=== PATIENT | female | born 1955 | race Caucasian/White ===

== ENCOUNTER 2023-08-15 08:45 | Outpatient (AMB) | payer MEDICARE, SELFPAY ==
[2023-08-15 09:42] VITALS: BP 130/80; PULSE 99; TEMP 37.2; O2SAT 97; BMI 38.1
--- NOTE | 2023-08-15 09:42 | AM.OFFWIN_ITS ---
Intake Vital Signs 08/15/23 09:42 Height 5 ft 4 in Weight 222 lb BMI 38.1 BP 130/80 Blood Pressure Location Rt brachial Position Sitting Pulse 99 Pulse Source Pulse Oximeter Temp 98.9 F Pulse Oximetry (%) 97 Oxygen Delivery Method Room Air Intake Visit Reasons: BULLDOZER OPERATOR/sore throat([phone]) Intake Note: Pt is here today for sore throat and bad cough, started 2 wks ago also came in contact with positive RSV Patient Tobacco Use Status: Current everyday Tobacco user Allergies No Known Allergies Allergy (Verified 08/15/23 09:43) Do you need a note to return to daycare/school/sports/work: No HPI HPI Comments History of Present Illness Details She presents to office with ST She said 2 weeks ago runny nose, body aches and cold symptoms Her grand-daughter was + rsv Pt was feeling better and taking Clorcidine which helped + thick mucus and drip in sinuses + ear pain yesterday in both sides ST is severe and worse with cough PFSH Social History Patient Tobacco Use Status: Current everyday Tobacco user Review of Systems Const Reports body aches, Denies chills, Reports fatigue and Denies fever(s) Eyes Denies blurry vision ENT Reports otalgia, Reports nasal congestion and Reports sore throat Card Denies chest pain and Denies dyspnea Resp Reports cough and Denies dyspnea Endo Reports fatigue Physical Exam Vital Signs: Last Vital Signs Temp 98.9 F 08/15/23 09:42 Pulse 99 08/15/23 09:42 BP 130/80 08/15/23 09:42 Pulse Ox 97 08/15/23 09:42 Oxygen Delivery Method Room Air 08/15/23 09:42 BMI result Body Mass Index 38.1 General: Non-toxic, NAD. Speaking full sentences. Skin: Warm dry throughout Eye: EOMI HENT: Airway patent. Uvula midline. No pharyngeal erythema or edema. 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 + rhinorrhea. No significant sinus tenderness to palpation Bilateral canals clear. L TM slight erythema without bulging or perforation. R TM non-erythematous, non-bulging. No TM perforation or hemotympanum noted. Respiratory: CTA bilaterally. No wheezes, rales or rhonchi Cardiac: RRR. No murmur MSK: Full ROM extremities. Neurology: A/O. No aphasia or facial droop. Gait without abnormality Psych: Good mood and affect Results AMB Rapid Strep AMB Rapid Strep Negative Last Edit by Rigoberto Busch CMA on 08/15/23 10 :18 Results Reviewed Results Reviewed: Laboratory Last Values Strep Scn Rapid Clinic Negative 08/15/23 10:18 Assessment & Plan Assessment & Plan (1) Upper respiratory infection: Code(s): J06.9 - Acute upper respiratory infection, unspecified Qualifiers: URI type: unspecified viral URI Qualified Code(s): J06.9 - Acute upper respiratory infection, unspecified Plan: Patient seen and evaluated. Lungs CTA strep negative RSV/flu/covid obtained If panel neg and symptoms worse; may required Augmentin for sinuses/slight L ear erythema; discussed may eventually turn to bacterial infection Patient gave verbal understanding and had no additional questions or concerns at time of discharge All questions answered Orders: Orders AMB Rapid Strep Screen Today Z13.9 - Encounter for screening, unspecified SARS-CoV2/FLU/RSV Today R09.89 - Other specified symptoms and signs involving the circulatory and respiratory systems Coding Level of Care Code New Pt Level 3 (72075) Diagnoses Viral upper respiratory tract infection J06.9 URI type: unspecified viral URI
== END 2023-08-15 10:13 | disposition home or self-care (01) ==
PROVIDERS: PCP Internal Medicine; Visit Provider Physician Assistant
DX: J02.9 Acute pharyngitis, unspecified (principal)
CPT/HCPCS: 87880; 99203

== ENCOUNTER 2023-08-15 13:33 | Outpatient (REF) | payer MEDICARE, SELFPAY ==
[2023-08-15 14:15] LABS: Influenza A PCR NEGATIVE (Negative); Influenza B PCR NEGATIVE (Negative); Resp Syncy Virus RNA Qual PCR NEGATIVE (Negative); SARS COV2 PCR INHOUSE NEGATIVE (Negative)
== END 2023-08-15 13:34 | disposition home or self-care (01) ==
LOC: HO.HMGCLNP 13:33
PROVIDERS: Visit Provider Physician Assistant
DX: R09.89 Other specified symptoms and signs involving the circulatory and respiratory systems (principal); Z20.822 Contact with and (suspected) exposure to COVID-19
CPT/HCPCS: 0241U

== ENCOUNTER 2024-09-04 13:14 | Outpatient (AMB) | payer MEDICARE, SELFPAY ==
[2024-09-04 13:32] VITALS: BP 122/80; PULSE 81; O2SAT 99
--- NOTE | 2024-09-04 13:32 | MHC.OFFWIV ---
Intake Vital Signs 09/04/24 13:32 Weight 197 lb BP 122/80 Blood Pressure Location Lt brachial Position Sitting Pulse 81 Pulse Source Pulse Oximeter Pulse Oximetry (%) 99 Oxygen Delivery Method Room Air Intake Visit Reasons: EP rash on chin, eye & neck Intake Note: Patient here for rash on neck that she noticed a few days ago. Patient Tobacco Use Status: Current everyday Tobacco user Allergies No Known Allergies Allergy (Verified 09/04/24 13:36) Do you need a note to return to daycare/school/sports/work: No HPI EP rash on chin, eye & neck HPI Details This is a 69-year-old female patient who presents to the walk-in clinic today with a 4 day history of a rash on her neck and upper chest. She states it is itchy. She denies any known exposure to irritants or new products. Denies any shortness of breath. [facility] Social History Patient Tobacco Use Status: Current everyday Tobacco user Review of Systems Const All systems reviewed & are unremarkable except as noted in HPI and below Physical Exam Vital Signs: Last Vital Signs Pulse 81 09/04/24 13:32 BP 122/80 09/04/24 13:32 Pulse Ox 99 09/04/24 13:32 Oxygen Delivery Method Room Air 09/04/24 13:32 Const General: cooperative and healthy appearing Limitations: no limitations HEENT Head: Yes normal to inspection Ears: hearing grossly normal bilaterally General nose exam: Normal external nose present Face and sinus: Yes normal facial exam Resp Effort & Inspection: normal respiratory effort Auscultation: clear to auscultation bilaterally Skin Other: Rash consistent with contact derm over neck and upper chest. No open areas. Extrem General: Yes capillary refill normal and Yes no clubbing, cyanosis or edema Psych Appearance: grossly normal Mental Status: mental status grossly normal Speech and movement: Normal speech and movement present Assessment & Plan Assessment & Plan (1) Contact dermatitis: Code(s): L25.9 - Unspecified contact dermatitis, unspecified cause Qualifiers: Contact dermatitis type: unspecified Contact dermatitis trigger: unspecified trigger Qualified Code(s): L25.9 - Unspecified contact dermatitis, unspecified cause Plan: Will start on a prednisone taper. Patient states she has done well on this in the past for other issues. We reviewed indications, use, possible side effects of medication. If she does not improve with treatment, or if rash worsens or spreads, or she develops any shortness of breath, she should return to the clinic or emergency department for evaluation. She verbalizes understanding and agrees to plan. Medications: New prednisone Take 4 tabs for two days, then take 3 tabs for two days, then take 2 tabs for two days, then take 1 tab for 2 days. 10 mg PO DAILY 20 tabs 0RF L25.9 - Unspecified contact dermatitis, unspecified cause Coding Level of Care Code Est Pt Level 4 (93297) Diagnoses Contact dermatitis, unspecified contact dermatitis type, unspecified trigger L25.9 Contact dermatitis type: unspecified Contact dermatitis trigger: unspecified trigger
== END 2024-09-04 14:08 | disposition home or self-care (01) ==
PROVIDERS: PCP Internal Medicine; Visit Provider Nurse Practitioner Family
DX: L25.9 Unspecified contact dermatitis, unspecified cause (principal)

== ENCOUNTER → 2024-09-04 13:14 | Outpatient (BNVA) | payer MEDICARE, SELFPAY | PROVIDERS: PCP Internal Medicine; Visit Provider Nurse Practitioner Family | DX: L25.9 Unspecified contact dermatitis, unspecified cause (principal) | CPT/HCPCS: 99212 ==

== ENCOUNTER 2024-11-09 10:56 | Outpatient (AMB) | payer MEDICARE, SELFPAY ==
--- NOTE | 2024-11-09 11:55 | AM.OFFWIN_ITS ---
Intake Vital Signs 11/09/24 11:59 Weight 207 lb BP 120/80 Blood Pressure Location Lt brachial Position Sitting Pulse 85 Pulse Source Pulse Oximeter Pulse Oximetry (%) 98 Oxygen Delivery Method Room Air Intake Visit Reasons: EP Rash Intake Note: Patient here for rash on arms that started 3 days prior to end of her cruise. Patient Tobacco Use Status: Current everyday Tobacco user Allergies No Known Allergies Allergy (Verified 11/09/24 12:00) Do you need a note to return to daycare/school/sports/work: No HPI HPI Comments History of Present Illness Details History of Present Illness - The patient is a 69-year-old female pr esenting with a rash on both arms for the last 4 days, she was on a cruise when it started. - The rash began approximately mid-trip and coincided with the use of a sample lotion and a strong hold hairspray after extended sun exposure. - The rash is characterized as super itc hy, and hydrocortisone cream partially alleviated itching but not the rash itself. - There is a note of skin texture altera tion described as leathery. Physical Exam General: Cooperative, healthy appearing, comfortable, no acute distress and well developed Orientation: Patient oriented x3 Limitations: No limitations Head: Normal to inspection Ears: Hearing grossly normal bilaterally Nose: Normal External nose present Face and sinus: Normal facial exam Eyes: Appearance normal, both eyes and all related structures Neck: Normal visual inspection and Yes full ROM Respiratory: Normal respiratory effort and able to speak in complete sentences. Skin: bialteral arms with pinpoint raised erythematous lesions, confluent on both arms stopping abruptly at her T-shirt line. Neuro: Patient oriented x3 Extremities: Normal to inspection [facility] Social History Patient Tobacco Use Status: Current everyday Tobacco user Review of Systems Const All systems reviewed & are unremarkable except as noted in HPI and below Physical Exam Vital Signs: Last Vital Signs Pulse 85 11/09/24 11:59 BP 120/80 11/09/24 11:59 Pulse Ox 98 11/09/24 11:59 Oxygen Delivery Method Room Air 11/09/24 11:59 Assessment & Plan Assessment & Plan (1) Allergic dermatitis: Code(s): L23.9 - Allergic contact dermatitis, unspecified cause Plan: Management of the patient's suspected allergic contact dermatitis includes prescribing triamcinolone cream for its moderate potency to reduce inflammation and applying it twice daily to the affected arms. Additionally, hydroxyzine will address nocturnal itching with its sedative properties, promoting better sleep. Prescriptions will be directed to the local pharmacy. The patient's care plan focuses on alleviating acute symptoms, avoiding potential allergens, and encouraging follow-up if symptoms do not resolve with current interventions. Patient was informed and verbally consented to the use of an ambient scribe for clinic note documentation during this visit. Medications: New triamcinolone acetonide 0.1% 1 appl topical BID PRN 80 grams 0RF itching hydroxyzine HCl 25 mg PO BEDTIME 14 tabs 0RF Coding Level of Care Code New Pt Level 3 (59647) Diagnoses Allergic dermatitis L23.9
[2024-11-09 11:59] VITALS: BP 120/80; PULSE 85; O2SAT 98
== END 2024-11-09 12:37 | disposition home or self-care (01) ==
PROVIDERS: PCP Internal Medicine; Visit Provider Physician Assistant
DX: L23.9 Allergic contact dermatitis, unspecified cause (principal)

== ENCOUNTER → 2024-11-09 10:56 | Outpatient (BNVA) | payer MEDICARE, SELFPAY | PROVIDERS: PCP Internal Medicine; Visit Provider Physician Assistant | DX: L23.9 Allergic contact dermatitis, unspecified cause (principal) | CPT/HCPCS: 99202 ==

== ENCOUNTER 2025-04-14 09:57 | Outpatient (AMB) | payer MEDICARE, SELFPAY ==
--- OUTSIDE RECORDS SUMMARY | 2025-04-14 10:41 | XMS_ITS | Clinical Summary ---
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, without mention of thyrotoxic crisis or storm DX:Thyrotoxicosis without m ention of goiter or other cause, without mention of thyrotoxic crisis or storm Backache, unspecified 09/19/2006 DX:Backach e, unspecified; COMMENT: surgery 1985 Family History Medical History Relation Name Comments Prostate cancer Father Colon cancer Mother Other: hypothyroidism Other 1 strong ly positive family history Relation Name Status Comments Father Mother Other 1 Other 2 Social History Tobacco Use Types Packs/Day Years Used Date Smoking Tobacco: Every Day Cigarettes Alcohol Use Standard Drinks/Week Comments Yes 0 (1 standard drink = 0.6 oz pur e alcohol) Comments Unknown Sex and Gender Information Value Date Recorded Sex Assigned at Not on file Legal Sex Female 4:20 AM EST Gender Identity Not on file Sexual Orientation Not on file Obstetrics History Plan of Treatment Health Maintenance Due Date Last Done Comments Pneumococcal Vaccine: 50+ Years (1 of 2 - PCV) 1976 Zoster Vaccines (1 of 2) 2007 DTaP,Tdap,and Td Vaccines (2 - Td or Tdap) 08/20/2018 08/20/2008 Colorectal Cancer Screening: Colonoscopy 07/22/2022 Falls Risk Assessment 07/22/2022 Hepatitis C Screening 07/22/2022 Social Influencers of Health Screening 07/22/2022 COVID-19 Vaccine ( season) 2024 09/29/2020, 09/01/2020 Depression Screening 08/19/2024 Influenza Vaccine (#1) 2025 8, 06/04/2007, 07/28/2006, Additional history exists Breast Cancer Screening 05/26/2026 05/26/20 24, 10/24/2022, 12/11/2020, Additional history exists RSV Immunization Adult Patients (1 - 1-dose 75+ series) 2032 Osteoporosis Screening (Bone Density Screening) 06/02/2034 06/02/2024 HIB Vaccines Aged Out No longer eligi ble based on patient's age to complete this topic HPV Vaccines Aged Out No longer eligi ble based on patient's age to complete this topic Hepatitis A Vaccines Aged Out No long er eligible based on patient's age to complete this topic Hepatitis B Vaccines Aged Out No long er eligible based on patient's age to complete this topic IPV Vaccines Aged Out No longer eligi ble based on patient's age to complete this topic MMR Vaccines Aged Out No longer eligi ble based on patient's age to complete this topic Meningococcal ACWY Vaccine Aged Out N o longer eligible based on patient's age to complete this topic Meningococcal B Vaccine Aged Out No l onger eligible based on patient's age to complete this topic RSV Immunization Patients Under 20 months Aged Out No longer eligible based on patient's age to complete this topic Varicella Vaccines Aged Out No longer eligible based on patient's age to complete this topic Procedures Procedure Name Priority Date/Time Associated Diagnosis Comments [facility] DEXA AXIAL SKELETON Routine 06/02/2024 10:05 AM EDT Other specified disorders of bone density and structure, right thigh [facility] SCREENING DIGITAL Routine 05/26/2024 1:50 PM EDT Encounter for screening mammogram for malignant neoplasm of breast from Last 3 Months or Most Recently Relevant to Health Maintenance Results * [facility] DEXA AXIAL SKELETON (06/02/2024 10:05 AM EDT) Anatomical Region Laterality Modality Mammography 06/02/2024 7:24 AM EDT Narrative 06/02/2024 10:[address] [facility] Diagnostic Imaging Department [address] [place] [id number] Patient: MASOODJANELLMARCELINA D.O.B./Age/Sex: 1955 - 69 - F Unit#: [id number] Location/Status: SPDIMAM/REG CLI [facility] Ordering Physician: AILYN SHARPE POWDER LINE REPAIRER Philip Dexa Axial Skeleton - 06/02/24746 Report Status:Signed History: Low estrogen state due to menopause. Current smoker. Personal history of fracture. Comparison: 06/29/13 Findings: Bone densitometry is performed utilizing dual energy x-ray absorptiometry (DXA) in the [employer] unit. The lumbar spine and proximal femora are evaluated in the AP projection. The FRAX questionaire was completed. The results indicate low bone mass (osteopenia), with a right femoral neck T- score of -1.1. The Z score is -0.3, indicating bone mineral density within the range of normal for age. There has been no statistically significant change. The detailed DEXA report will be mailed to the referring physician's office. [employer] FRAX: 10-year Probability of Fracture: Major Osteoporotic 12.7 percent Hip 1.8 percent. IMPRESSION: Osteopenia. [id number] Dictating Physician: STELLA VALENCIA MD Electronically Signed by: STELLA VALENCIA MD Dic Date/Time: 06/02/24 1004 Sign date/Time: 06/02/24 1005 Procedure Note Stella Valencia MD - 06/16/2024 [facility] Diagnostic Imaging Department [address] [place] [id number] Patient: MASOODJANELLMARCELINA D.O.B./Age/Sex: 1955 - 69 -F Unit#: [id number] [facility] Ordering Physician: AILYN SHARPE POWDER LINE REPAIRER Philip Dexa Axial Skeleton - 06/02/24 - [id number] Report Status:Signed History: Low estrogen state due to menopause. Current smoker. Personalhistory of fracture. Comparison: 06/29/13 Findings: Bone densitometry is performed utilizing dual energy x-ray absorptiometry(DXA) in the [employer] unit. The lumbar spine and proximal femora areevaluated in the AP projection. The FRAX questionaire was completed. The results indicate low bone mass (osteopenia), with a right femoral neckT- score of -1.1. The Z score is -0.3, indicating bone mineral density withinthe range of normal for age. There has been no statistically significant change. The detailed DEXAreport will be mailed to the referring physician's office. [employer] FRAX: 10-year Probability of Fracture: Major Osteoporotic 12.7 percent Hip 1.8 percent. IMPRESSION: Osteopenia. [id number] Dictating Physician: STELLA VALENCIA MD Electronically Signed by: STELLA VALENCIA MD Dic Date/Time: 06/02/24 100 Sign date/Time: 06/02/24 100 us Ailyn Sharpe NP IMG BI PROCEDURES Final Resul t * [facility] SCREENING DIGITAL (05/26/2024 1:50 PM EDT) Anatomical Region Laterality Modality Mammography 05/26/2024 7:52 AM EDT Narrative 05/26/2024 1:[address] [facility] Diagnostic Imaging Department [address] [place], [place] [id number] Patient: MASOODJANELLMARCELINA D.O.B./Age/Sex: 1955 - 69 - F Unit#: [id number] Location/Status: [facility] Mnemonic/Ordering Site: [facility] Ordering Physician: AILYN SHARPE NP [facility] Screening Digital - 05/26/[id number] Report Status:Signed EXAM: SCREENING MAMMOGRAPHY, BILATERAL HISTORY: SCREENING. No additional history. COMPARISON: 10/24/2022, 12/10/2020, 08/25/2018 TECHNIQUE: Synthesized CC and MLO projections of each breast. Tomosynthesis of each breast in the CC and MLO projections. ADDITIONAL IMAGING: None Computer-aided detection was employed. i CAD profound AI 3-D. TISSUE DENSITY: The breasts are heterogeneously dense, which may obscure small masses. (BI-RADS category C) FINDINGS: RIGHT BREAST: No suspicious mass. No suspicious calcification. No distortion. LEFT BREAST: No suspicious mass. No new suspicious calcification. No distortion. No suspicious interval change in some calcifications in the 11 o'clock position 5 cm from the left nipple IMPRESSION: No mammographic evidence of malignancy No suspicious interval change. A negative mammogram in the presence of a clinically suspicious palpable abnormality does not preclude the possibility of malignancy or alter the indications for biopsy. ASSESSMENT: BI-RADS 2: BENIGN RECOMMENDATION(S): 1: Routine screening mammogram BILATERAL in 1 year. Dictating Physician: Cady LAZCANO BRET MD Electronically Signed by: Cady LAZCANO BRET MD Dic Date/Time: 05/26/24 1341 Sign date/Time: 05/26/24 1350 Procedure Note Patel Lazcano MD - 06/16/2024 [facility] Diagnostic Imaging Department [address] [place] [address] Patient: MARCELINA DELEON Yu NashB./Age/Sex: 1955 - 69 -F Unit#: [id number] [facility] Mnemonic/Ordering Site: [facility] Ordering Physician: AILYN SHARPE POWDER LINE REPAIRER Philip Screening Digital - 05/26/24826 Report Status:Signed EXAM: SCREENING MAMMOGRAPHY, BILATERAL HISTORY: SCREENING. No additional history. COMPARISON: 10/24/2022, 12/10/2020, 08/25/2018 TECHNIQUE: Synthesized CC and MLO projections of each breast.Tomosynthesis of each breast in the CC and MLO projections. ADDITIONAL IMAGING: None Computer-aided detection was employed. i CAD profound AI 3-D. TISSUE DENSITY: The breasts are heterogeneously dense, which may obscuresmall masses. (BI-RADS category C) FINDINGS: RIGHT BREAST: No suspicious mass. No suspicious calcification. No distortion. LEFT BREAST: No suspicious mass. No new suspicious calcification. No distortion. No suspicious interval change in some calcifications in the 11 o'clockposition 5 cm from the left nipple IMPRESSION: No mammographic evidence of malignancy No suspicious interval change. A negative mammogram in the presence of a clinically suspicious palpable abnormality does not preclude the possibility of malignancy or alter the indications for biopsy. ASSESSMENT: BI-RADS 2: BENIGN RECOMMENDATION(S): 1: Routine screening mammogram BILATERAL in 1 year. Dictating Physician: Cady LAZCANO BRET MD Electronically Signed by: Cady LAZCANO BRET MD Dic Date/Time: 05/26/24 1341 Sign date/Time: 05/26/24 1350 us Ailyn Sharpe NP IMG BI PROCEDURES Final Resul t from Last 3 Months or Most Recently Relevant to Health Maintenance Care Teams Rn Anesthesiology Relationship Specialty Start Date End Date Adrian Luna MD [address] [facility] [address] [place], [place] PCP - General Internal Medicine 01/03/15
--- OUTSIDE RECORDS SUMMARY | 2025-04-14 10:41 | XMS_ITS | Clinical Summary ---
Author Organization [facility] Address [address] [place] [address] Care Team Providers Care Glove Machine Operator Name Role Phone Unavailable Primary Care Provider Unavailabl e Immunizations Name Administration Dates Next Due Covid-19 (Moderna 12+) 100mcg/0.5mL dosage 09/29,09/01/2020 Social History Tobacco Use Types Packs/Day Years Used Date Smoking Tobacco: Never Assessed Sex and Gender Information Value Date Recorded Sex Assigned at Not on file Gender Identity Not on file Sexual Orientation Not on file Plan of Treatment Health Maintenance Due Date Last Done Comments Hepatitis C Screening 1955 Depression Screening 1969 Preventative Health Evaluation 1975 DTap / Tdap / Td (1 - Tdap) 1976 Colon Cancer Screening (Colonoscopy) 2002 Breast Cancer Screening (Mammogram) 2007 Shingrix-Zoster Vaccine (1 o f 2) 2007 Fall Risk Assessment 2022 Osteoporosis Screening (DEXA Scan) 2022 Pneumococcal Vaccine (1 of 1 - PCV) 2022 COVID-19 Vaccine (3 - 2023-2 5 season) 2024 09/29/2020, 09/01/2020 Influenza Vaccine (#1) 2025 RSV Adult > 60+ Yrs or (1 - 1-dose 75+ series) 2032 Hepatitis B Vaccines Aged Out No long er eligible based on patient's age to complete this topic RSV Ped < 20 months Aged Out No longe r eligible based on patient's age to complete this topic Insurance Payer Benefit Plan / Group Subscriber ID Effective Dates Phone Address [facility] [id number] [place] [address] O
== END 2025-04-14 09:59 | disposition home or self-care (01) ==
LOC: HO.HMGAL 09:57
PROVIDERS: PCP Internal Medicine; Visit Provider Registered Nurse Emergency
DX: J30.89 Other allergic rhinitis (principal)
CPT/HCPCS: 95117; 95165

== ENCOUNTER 2025-04-28 13:05 | Outpatient (AMB) | payer MEDICARE, SELFPAY ==
--- OUTSIDE RECORDS SUMMARY | 2025-04-28 16:04 | XMS_ITS | Clinical Summary ---
Author Organization [facility] Address [address] [place] [address] Phone Care Team Providers Care Tobacco Scrap Sifter Name Role Phone Adrian Luna MD Primary [...] 07/22/2022 Social Influencers of Health Screening 07/22/2022 Depression Screening 08/19/2024 COVID-19 Vaccine (3 - season) 2025 09/29/2020, 09/01/2020 Influenza Vaccine (#1) 2025 8, 06/04/2007, 07/28/2006, [...] Procedure Name Priority Date/Time Associated Diagnosis Comments [facility] DEXA AXIAL SKELETON Routine 06/02/2024 10:05 AM EDT Other specified disorders of bone density and structure, right thigh [facility] SCREENING DIGITAL Routine 05/26/2024 1:50 PM EDT Encounter for screening mammogram for malignant neoplasm of breast from Last 3 Months or Most Recently Relevant to Health Maintenance Results * [facility] DEXA AXIAL SKELETON (06/02/2024 10:05 AM EDT) Anatomical Region Laterality Modality Mammography 06/02/2024 7:24 AM EDT Narrative 06/02/2024 10:05 AM EDT [facility] Diagnostic Imaging Department [address] [place] [address] Patient: MASOODJANELLMARCELINA D.O.B./Age/Sex: 1955 - 69 - F Unit#: [id number] Location/Status: SPDIMAM/REG CLI [facility] Ordering Physician: AILYN SHARPE RETAIL EQUIPMENT ASSOCIATE [facility] Dexa Axial Skeleton - 06/02/24746 Report Status:Signed History: Low estrogen state due to menopause. Current smoker. Personal history of fracture. Comparison: 06/29/13 Findings: Bone densitometry is performed utilizing dual energy x-ray absorptiometry (DXA) in the [employer] unit. The lumbar spine and proximal femora [...] 12.7 percent Hip 1.8 percent. IMPRESSION: Osteopenia. [id number] Dictating Physician: STELLA VALENCIA MD Electronically Signed by: STELLA VALENCIA MD Dic Date/Time: 06/02/24 1004 Sign date/Time: 06/02/24 1005 Procedure Note Stella Valencia MD - 06/16/2024 [facility] Diagnostic Imaging Department [address] [place] [address] Patient: MASOODJANELLMARCELINA D.O.B./Age/Sex: 1955 - 69 -F Unit#: [id number] [facility]emonic[facility]ing [facility] Ordering Physician: AILYN SHARPE RETAIL EQUIPMENT ASSOCIATE Philip Dexa Axial Skeleton - 06/02/24 - 3092 Report Status:Signed History: Low estrogen state due to menopause. Current smoker. Personalhistory of fracture. Comparison: 06/29/13 Findings: Bone densitometry is performed utilizing dual energy x-ray absorptiometry(DXA) in the [employer] unit. The lumbar spine and proximal femora [...] 12.7 percent Hip 1.8 percent. IMPRESSION: Osteopenia. [id number] Dictating Physician: STELLA VALENCIA MD Electronically Signed by: STELLA VALENCIA MD Dic Date/Time: 06/02/24 100 Sign date/Time: 06/02/24 100 us Ailyn Sharpe NP IMG BI PROCEDURES Final Resul t * PHILIP SCREENING DIGITAL (05/26/2024 1:50 PM EDT) Anatomical Region Laterality Modality Mammography 05/26/2024 7:52 AM EDT Narrative 05/26/2024 1:50 PM EDT [facility] Diagnostic Imaging Department [address] [place], [place] [id number] Patient: MASOODJANELLMARCELINA D.O.B./Age/Sex: 1955 - 69 - F Unit#: [id number] Location/Status[facility] Mnemonic/Ordering Site: [facility] Ordering Physician: AILYN SHARPE NP [facility] Screening Digital - 05/26/24826 Report Status:Signed [...] Procedure Note Patel Lazcano MD - 06/16/2024 [facility] Diagnostic Imaging Department [address] [place] [address] Patient: MARCELINA DELEON Yu NashB./Age/Sex: 1955 - 69 -F Unit#: [id number] [facility]/Status[facility] Mnemonic/Ordering Site: [facility] Ordering Physician: AILYN SHARPE RETAIL EQUIPMENT ASSOCIATE [facility] Screening Digital - 05/26/24826 Report Status:Signed [...] Recently Relevant to Health Maintenance Care Teams Tobacco Scrap Sifter Relationship Specialty Start Date End Date Adrian Luna MD [address] [facility] [address] [place], [place] PCP - General Internal Medicine 01/03/15
--- OUTSIDE RECORDS SUMMARY | 2025-04-28 16:04 | XMS_ITS | Clinical Summary ---
Author Organization [facility] Address [address] [place] [address] Care Team Providers Care Accountant Budget Name Role Phone Unavailable Primary Care Provider [...] - PCV) 2022 COVID-19 Vaccine (3 - 2024-2 6 season) 2025 09/29/2020, 09/01/2020 Influenza Vaccine (#1) 2025 RSV [...] Group Subscriber ID Effective Dates Phone Address [facility] [id number] [address] [place] [address] O
== END 2025-04-28 13:06 | disposition home or self-care (01) ==
LOC: HO.HMGAL 13:05
PROVIDERS: PCP Internal Medicine; Visit Provider Registered Nurse Emergency
DX: J30.89 Other allergic rhinitis (principal)
CPT/HCPCS: 95117; 95165

== ENCOUNTER 2025-06-02 11:35 | Outpatient (AMB) | payer MEDICARE, SELFPAY | END 2025-06-02 11:37 | disposition home or self-care (01) | LOC: HO.HMGAL 11:35 | PROVIDERS: PCP Internal Medicine; Visit Provider Registered Nurse Emergency | DX: J30.89 Other allergic rhinitis (principal) | CPT/HCPCS: 95117; 95165 ==

== ENCOUNTER 2025-06-21 12:57 | Outpatient (AMB) | payer MEDICARE, SELFPAY | END 2025-06-21 12:57 | disposition home or self-care (01) | LOC: HO.HMGAL 12:57 | PROVIDERS: PCP Nurse Practitioner Family; Visit Provider Registered Nurse Emergency | DX: J30.89 Other allergic rhinitis (principal) | CPT/HCPCS: 95117; 95165 ==

== ENCOUNTER 2025-07-28 11:09 | Outpatient (AMB) | payer MEDICARE, SELFPAY ==
--- OUTSIDE RECORDS SUMMARY | 2025-07-28 17:52 | XMS_ITS | Clinical Summary ---
Author Organization [facility] Prior to 01/16/[address] [place] [address] Care Team Providers Care Change Room Attendant Name Role Phone Unavailable Primary Care Provider [...] Group Subscriber ID Effective Dates Phone Address [facility] [id number] [address] [place] [address] HMO
--- OUTSIDE RECORDS SUMMARY | 2025-07-28 17:52 | XMS_ITS ---
Author Name [facility] Organization Unknown History of Medication Use Medication Directions Dispensed Refills Start Date End Date Stat us amoxicillin-pot clavulanate 05/22/2025 active Acidophilus 05/22/2025 active Allergy Relief-D(fexofenadine) 05/22/2025 activ e losartan potassium 05/03/2025 ac tive atorvastatin calcium 11/05/2024 active Synthroid active Encounters Encounter Type Encounter Reason Primary Diagnosis Location Date Ambulatory TBE Acute sinusitis, unspecified [facility]) 05/22/2025 Care Team Organization Name Specialty Phone Email Start Date End Da [facility] 05/22/2025 [facility] 05/22/2025
--- OUTSIDE RECORDS SUMMARY | 2025-07-28 17:52 | XMS_ITS | Clinical Summary ---
Author Organization [facility] Address [address] [place] [address] Phone Care Team Providers Care Tube Bender Name Role Phone Sydney Sharpe NP Primary Care Provider [phone] Medications atorvastatin (LIPITOR) 10 mg tablet Take 1 tablet (10 mg total) by mouth at bedtime. Active cetirizine (ZyrTEC) 10 mg tablet Take 1 tablet (10 mg total) by mouth 1 (one) time each day. Active fluticasone propionate (FLONASE) 50 mcg/actuation nasal spray Administer 1 spray into each nostril 1 (one) time each day. Shake gently. Before first use, prime pump. After use, clean tip and replace cap. Active losartan (COZAAR) 50 mg tablet Take 1 tablet (50 mg total) by mouth 1 (one) time each day. Active multivitamin with minerals tablet Take 1 tablet by mouth 1 (one) time each day. Active Active Problems Problem Noted Date Diagnosed Date Colon polyp 07/29/2008 Overview (05/07/2025): Colonoscopy due 2011 Backache 09/19/2006 Overview (05/07/2025): surgery 1986 IMO update Thyrotoxicosis 11/20/2005 Encounters Date Type Department Care Team Description 05/07/2025 Telephone Gastroenterology - [place] [address] [facility] [address] [facility] [address] [place] [address] Tiffanie Panchal MD 05/04/2025 Telephone Gastroenterology - [address] [facility] [address] [place] [address] Mariela Carr MD from Last 3 Months Surgical History Surgery Date Site/Laterality Comments BACK [...] Health Maintenance Due Date Last Done Comments Colorectal Cancer Screening: Colonoscopy 1955 Pneumococcal Vaccine: 50+ Years (1 of 2 - PCV) 1976 Zoster Vaccines (1 of 2) 2007 DTaP,Tdap,and Td Vaccines (2 - Td or Tdap) 08/20/2018 08/20/2008 Falls Risk Assessment 07/22/2022 Hepatitis C Screening 07/22/2022 Medicare Annual Wellness Visit 07/22/2022 Social Influencers of Health Screening 07/22/2022 Depression Screening 08/19/2024 COVID-19 Vaccine ( season) 2025 09/29/2020, 09/01/2020 Influenza Vaccine (#1) [...] Procedure Name Priority Date/Time Associated Diagnosis Comments [facility] DEXA AXIAL SKELETON Routine 06/02/2024 10:05 AM EDT Other specified disorders of bone density and structure, right thigh [facility] SCREENING DIGITAL Routine 05/26/2024 1:50 PM EDT Encounter for screening mammogram for malignant neoplasm of breast from Last 3 Months or Most Recently Relevant to Health Maintenance Results * [facility] DEXA AXIAL SKELETON (06/02/2024 10:05 AM EDT) Anatomical Region Laterality Modality Mammography 06/02/2024 7:24 AM EDT Narrative 06/02/2024 10:05 AM EDT [facility] Diagnostic Imaging Department [address] [place] [address] Patient: RIBADENEYRA,MARCELINA M /Age/Sex: 1955 - 69 - F Unit#: [id number] Location/Status: SPDIMAM/REG CLI Mnemonic[facility] Ordering Physician: SYDNEY SHARPE SECURITY SYSTEMS ADMINISTRATOR [facility] Dexa Axial Skeleton - 06/02/2409 Report Status:Signed History: Low estrogen state due to menopause. Current smoker. Personal history of fracture. Comparison: 06/29/13 Findings: Bone densitometry is performed utilizing dual energy x-ray absorptiometry (DXA) in the [employer] unit. The lumbar spine and proximal femora [...] 12.7 percent Hip 1.8 percent. IMPRESSION: Osteopenia. [id number] Dictating Physician: KELLEE VALENCIA MD Electronically Signed by: KELLEE VALENCIA MD Dic Date/Time: 06/02/24 1004 Sign date/Time: 06/02/24 1005 Procedure Note Kellee Valencia MD - 06/16/2024 [facility] Diagnostic Imaging Department [address] [place] [address] Patient: MARCELINA DELEON /Age/Sex: 1955 - 69 -F Unit#: [id number] Location/Status: SPDIMAM/REG CLI Mnemonic[facility] Ordering Physician: SYDNEY SHARPE NP [facility] Dexa Axial Skeleton - 06/02/24 - 0747 Report Status:Signed History: Low estrogen state due to menopause. Current smoker. Personalhistory of fracture. Comparison: 06/29/13 Findings: Bone densitometry is performed utilizing dual energy x-ray absorptiometry(DXA) in the [employer] unit. The lumbar spine and proximal femora [...] 12.7 percent Hip 1.8 percent. IMPRESSION: Osteopenia. [id number] Dictating Physician: KELLEE VALENCIA MD Electronically Signed by: KELLEE VALENCIA MD Dic Date/Time: 06/02/24 1004 Sign date/Time: 06/02/24 1005 Sydney Sharpe NP IMG BI PROCEDURES Final Resul t * ROCIO SCREENING DIGITAL (05/26/2024 1:50 PM EDT) Anatomical Region Laterality Modality Mammography 05/26/2024 7:52 AM EDT Narrative 05/26/2024 1:50 PM EDT [facility] Diagnostic Imaging Department [address] [place] [address] Patient: MARCELINA DELEON Yu Jose/Age/Sex: 1955 - 69 - F Unit#: [id number] Location/Status: SPDIMAM/REG CLI Mnemonic/Ordering Site: [facility] Ordering Physician: SYDNEY SHARPE SECURITY SYSTEMS ADMINISTRATOR [facility] Screening Digital - 05/26/24826 Report Status:Signed EXAM: [...] Procedure Note Patel Lazcano MD - 06/16/2024 [facility] Diagnostic Imaging Department [address] [place] [address] Patient: MARCELINA DELEON Yu Orta/Age/Sex: 1955 - 69 -F Unit#: [id number] [facility] CLI Mnemonic/Ordering Site: [facility] Ordering Physician: SYDNEY SHARPE SECURITY SYSTEMS ADMINISTRATOR [facility] Screening Digital - 05/26/24826 Report Status:Signed EXAM: [...] Date/Time: 05/26/24 1341 Sign date/Time: 05/26/24 1350 Sydney Sharpe NP IMG BI PROCEDURES Final Resul t from Last 3 Months or Most Recently Relevant to Health Maintenance Insurance MEDICARE [facility] Care Teams Tube Bender Relationship Specialty Start Date End Date Sydney Sharpe NP [address] [place] [address] PCP - General Internal Medicine 05/07/25
== END 2025-07-28 11:10 | disposition home or self-care (01) ==
LOC: HO.HMGAL 11:09
PROVIDERS: PCP Nurse Practitioner Family; Visit Provider Registered Nurse Emergency
DX: J30.89 Other allergic rhinitis (principal)
CPT/HCPCS: 95117; 95165

== ENCOUNTER 2025-08-04 11:13 | Outpatient (AMB) | payer MEDICARE, SELFPAY ==
--- OUTSIDE RECORDS SUMMARY | 2025-08-04 14:52 | XMS_ITS | Clinical Summary ---
Author Organization [facility] Address [address] [place] [address] Phone Care Team Providers Care Integration Software Developer Name Role Phone Sydney Sharpe NP Primary Care Provider [phone] Medications atorvastatin (LIPITOR) 10 mg tablet Take [...] Care Team Description 05/07/2025 Telephone Gastroenterology - [place] 175 [facility] [address] [facility] [address] [place] [address] Tiffanie Panchal MD from Last 3 Months Surgical History [...] 07/22/2022 Depression Screening 08/19/2024 COVID-19 Vaccine ( - season) 2025 09/29/2020, 09/01/2020 Influenza Vaccine [...] Procedure Name Priority Date/Time Associated Diagnosis Comments [facility] DEXA AXIAL SKELETON Routine 06/02/2024 10:05 AM EDT Other specified disorders of bone density and structure, right thigh [facility] SCREENING DIGITAL Routine 05/26/2024 1:50 PM EDT Encounter for screening mammogram for malignant neoplasm of breast from Last 3 Months or Most Recently Relevant to Health Maintenance Results * [facility] DEXA AXIAL SKELETON (06/02/2024 10:05 AM EDT) Anatomical Region Laterality Modality Mammography 06/02/2024 7:24 AM EDT Narrative 06/02/2024 10:05 AM EDT [facility] Diagnostic Imaging Department [address] [place] [address] Patient: MARCELINA DELEON./Age/Sex: 1955 - 69 - F Unit#: [id number] Location/Status: SPDIMAM/REG CLI Mnemonic/Ordering Site[facility] Ordering Physician: SYDNEY SHARPE CHIEF EXECUTIVE [facility] Dexa Axial Skeleton - 06/02/24 0347 Report Status:Signed History: Low estrogen state due to menopause. Current smoker. Personal history of fracture. Comparison: 06/29/13 Findings: Bone densitometry is performed utilizing dual energy x-ray absorptiometry (DXA) in the [employer] unit. The lumbar spine and proximal femora [...] 12.7 percent Hip 1.8 percent. IMPRESSION: Osteopenia. [id number] Dictating Physician: STELLA VALENCIA MD Electronically Signed by: STELLA VALENCIA MD Dic Date/Time: 06/02/24 1004 Sign date/Time: 06/02/24 1005 Procedure Note Stella Valencia MD - 06/16/2024 [facility] Diagnostic Imaging Department [address] [place] [address] Patient: MARCELINA DELEON D.O.B./Age/Sex: 1955 - 69 -F Unit#: [id number] Location/Status: SPDIMAM/REG CLI Mnemonic/Ordering Site: [facility] Ordering Physician: SYDNEY SHARPE NP [facility] Dexa Axial Skeleton - 06/02/24 - 0747 Report Status:Signed History: Low estrogen state due to menopause. Current smoker. Personalhistory of fracture. Comparison: 06/29/13 Findings: Bone densitometry is performed utilizing dual energy x-ray absorptiometry(DXA) in the [employer] unit. The lumbar spine and proximal femora [...] 12.7 percent Hip 1.8 percent. IMPRESSION: Osteopenia. [id number] Dictating Physician: STELLA VALENCIA MD Electronically Signed by: STELLA VALENCIA MD Dic Date/Time: 06/02/24 1004 Sign date/Time: 06/02/24 1005 us Sydney Sharpe NP IMG BI PROCEDURES Final Resul t * ROCIO SCREENING DIGITAL (05/26/2024 1:50 PM EDT) Anatomical Region Laterality Modality Mammography 05/26/2024 7:52 AM EDT Narrative 05/26/2024 1:50 PM EDT [facility] Diagnostic Imaging Department [address] [place] [address] Patient: MARCELINA DELEON /Age/Sex: 1955 - 69 - F Unit#: [id number] Location/Status: [facility] CLI Mnemonic/Ordering Site: [facility] Ordering Physician: SYDNEY SHARPE CHIEF EXECUTIVE [facility] Screening Digital - 05/26/24826 Report Status:Signed [...] Procedure Note Patel Lazcano MD - 06/16/2024 [facility] Diagnostic Imaging Department [address] [place] [address] Patient: MARCELINA DELEON Yu Orta/Age/Sex: 1955 - 69 -F Unit#: [id number] [facility] Mnemonic/Ordering Site: [facility] Ordering Physician: SYDNEY SHARPE NP [facility] Screening Digital - 05/26/24826 Report Status:Signed [...] Recently Relevant to Health Maintenance Insurance MEDICARE [facility] Care Teams Integration Software Developer Relationship Specialty Start Date End Date Sydney Sharpe NP [address] [place] [address] PCP - General Internal Medicine 05/07/25
--- OUTSIDE RECORDS SUMMARY | 2025-08-04 14:52 | XMS_ITS | Clinical Summary ---
Author Organization [facility] Prior to 01/16/[address] [place] [address] Care Team Providers Care Document Image Technician Name Role Phone Unavailable Primary Care Provider [...] Group Subscriber ID Effective Dates Phone Address [facility] [id number] [address] [place] [address] HMO
== END 2025-08-04 11:13 | disposition home or self-care (01) ==
LOC: HO.HMGAL 11:13
PROVIDERS: PCP Nurse Practitioner Family; Visit Provider Registered Nurse Emergency
DX: J30.89 Other allergic rhinitis (principal)
CPT/HCPCS: 95117; 95165

== ENCOUNTER 2025-08-09 11:34 | Outpatient (AMB) | payer MEDICARE, SELFPAY ==
--- OUTSIDE RECORDS SUMMARY | 2025-08-09 14:47 | XMS_ITS | Clinical Summary ---
Author Organization [facility] Prior to 01/16/[address] [place] [address] Care Team Providers Care Steel Die Printer Name Role Phone Unavailable Primary Care Provider [...] Group Subscriber ID Effective Dates Phone Address [facility] [id number] [address] [place] [address] HMO
--- OUTSIDE RECORDS SUMMARY | 2025-08-09 14:47 | XMS_ITS | Clinical Summary ---
Author Organization [facility] Address [address] [place] [address] Phone Care Team Providers Care Welder Plasma Arc Name Role Phone Sydney Sharpe NP Primary Care Provider [phone] Medications atorvastatin (LIPITOR) 10 mg tablet Take [...] (05/07/2025): surgery 1986 IMO update Thyrotoxicosis 11/20/2005 Surgical History Surgery Date Site/Laterality Comments BACK [...] unspecified 09/19/2006 DX:Backach e, unspecified; COMMENT: surgery 1986 Family History Medical History Relation Name Comments [...] Procedure Name Priority Date/Time Associated Diagnosis Comments [facility] DEXA AXIAL SKELETON Routine 06/02/2024 10:05 AM EDT Other specified disorders of bone density and structure, right thigh [facility] SCREENING DIGITAL Routine 05/26/2024 1:50 PM EDT Encounter for screening mammogram for malignant neoplasm of breast from Last 3 Months or Most Recently Relevant to Health Maintenance Results * [facility] DEXA AXIAL SKELETON (06/02/2024 10:05 AM EDT) Anatomical Region Laterality Modality Mammography 06/02/2024 7:24 AM EDT Narrative 06/02/2024 10:[address] [facility] Diagnostic Imaging Department [address] [place], [place] [address] Patient: SHARAN DELEON D.O.B./Age/Sex: 1955 - F Unit#: [id number] Location/Status: SPDIMAM/REG CLI Mnemonic[facility] Ordering Physician: SYDNEY SHARPE DISABILITY ADVOCATE [facility] Dexa Axial Skeleton - 06/02/2447 Report Status:Signed History: Low estrogen state due to menopause. Current smoker. Personal history of fracture. Comparison: 06/29/13 Findings: Bone densitometry is performed utilizing dual energy x-ray absorptiometry (DXA) in the [employer] unit. The lumbar spine and proximal femora [...] 12.7 percent Hip 1.8 percent. IMPRESSION: Osteopenia. [id number] Dictating Physician: STELLA VALENCIA MD Electronically Signed by: STELLA VALENCIA MD Dic Date/Time: 06/02/24 1004 Sign date/Time: 06/02/24 1005 Procedure Note Stella Valencia MD - 06/16/2024 [facility] Diagnostic Imaging Department [address] [place] [address] Patient: SHARAN DELEON/Age/Sex: 1955 - 69 -F Unit#: [id number] Location/Status: SPDIMAM/REG CLI Mnemonic/[facility] Ordering Physician: SYDNEY SHAREP DISABILITY ADVOCATE [facility] Dexa Axial Skeleton - 06/02/24 - 8247 Report Status:Signed History: Low estrogen state due to menopause. Current smoker. Personalhistory of fracture. Comparison: 06/29/13 Findings: Bone densitometry is performed utilizing dual energy x-ray absorptiometry(DXA) in the [employer] unit. The lumbar spine and proximal femora [...] 12.7 percent Hip 1.8 percent. IMPRESSION: Osteopenia. [id number] Dictating Physician: STELLA VALENCIA MD Electronically Signed by: STELLA VALENCIA MD Dic Date/Time: 06/02/24 1004 Sign date/Time: 06/02/24 1005 us Sydney Jenkinsten DISABILITY ADVOCATE IMG BI PROCEDURES Final Resul t * ROCIO SCREENING DIGITAL (05/26/2024 1:50 PM EDT) Anatomical Region Laterality Modality Mammography 05/26/2024 7:52 AM EDT Narrative 05/26/2024 1:[address] [facility] Diagnostic Imaging Department [address] [place] [address] Patient: SHARAN DELEON/Age/Sex: 1955 - 69 - F Unit#: [id number] Location/Status: [facility]/REG CLI Mnemonic/Ordering Site: [facility] Ordering Physician: SYDNEY SHARPE DISABILITY ADVOCATE [facility] Screening Digital - 05/26/24826 Report Status:Signed [...] Note Patel Lazcano MD - 06/16/2024 [facility] Diagnostic Imaging Department [address] [place], [place] [address] Patient: SHARAN DELEON /Age/Sex: 1955 - 69 -F Unit#: [id number] Location/Status: [facility] CLI Mnemonic/Ordering Site: [facility] Ordering Physician: SYDNEY SHARPE DISABILITY ADVOCATE [facility] Screening Digital - 05/26/24826 Report Status:Signed [...] 05/26/24 1341 Sign date/Time: 05/26/24 1350 us Sydney Sharpe NP IMG BI PROCEDURES Final Resul t from Last 3 Months or Most Recently Relevant to Health Maintenance Insurance MEDICARE [facility] Care Teams Welder Plasma Arc Relationship Specialty Start Date End Date Sydney Sharpe NP [address] [facility] [place] [address] PCP - General Internal Medicine 05/07/25
== END 2025-08-09 11:35 | disposition home or self-care (01) ==
LOC: HO.HMGAL 11:34
PROVIDERS: PCP Nurse Practitioner Family; Visit Provider Registered Nurse Emergency
DX: J30.89 Other allergic rhinitis (principal)
CPT/HCPCS: 95117; 95165